=== PATIENT | female | born 1970 | race Caucasian/White ===

== ENCOUNTER 2016-08-14 14:38 | Inpatient (IN) | payer OTHER ==
[~2016-08-14] VITALS: Ht 167.6 cm; Wt 86.8 kg
[~2016-08-14 14:38] MED LIST: AMLO5TAB4 PO; ATEN-51 PO; CEPH500C PO; CIPR500T4 PO; FURO20TA3 PO; IBUP400T22 PO; LACT1CAP47 PO; LOSA25TA5 PO; MAGN400T28 PO; METF500T4 PO; MONT10TA21 PO; TRAM50TA2 PO
[2016-08-14] MEDS ORDERED: ASPIRIN 325 MG TAB PO STA (19:15)
[2016-08-14] MEDS ORDERED: LOSA50TA6 PO (19:37)
[2016-08-14] MEDS ORDERED: ASCO500S2 PO (19:39)
[2016-08-14] MEDS ORDERED: OMEG1CAP30 PO (19:39)
[2016-08-14 19:42] LABS: ADD SCAN DIFF NO
[2016-08-14 19:43] LABS: BASOPHIL # 0.1 10^3/ul (0.0-0.1); BASOPHILS % 0.6 % (0.0-2.0); EOSINOPHILS # 0.3 10^3/ul (0.0-0.5); EOSINOPHILS % 3.5 % (0.0-7.0); HEMATOCRIT 43.5 % (37.0-47.0); HEMOGLOBIN 14.4 g/dl (12.0-16.0); LYMPHOCYTES # 3.8 10^3/ul (0.8-2.9); LYMPHOCYTES % 44.6 % (15.0-51.0); MEAN CORPUSCULAR HEMOGLOBIN 30.4 pg (29.0-33.0); MEAN CORPUSCULAR HGB CONC 33.1 g/dl (32.0-37.0); MEAN PLATELET VOLUME 10.9 fl (7.4-10.4); MONOCYTE # 0.6 10^3/ul (0.3-0.9); MONOCYTES % 7.1 % (0.0-11.0); NEUTROPHIL # 3.7 10^3/ul (1.6-7.5); PLATELET COUNT 318 10^3/UL (140-415); RED BLOOD COUNT 4.73 10^6/ul (4.20-5.40); RED CELL DISTRIBUTION WIDTH 12.6 % (11.5-14.5); WHITE BLOOD COUNT 8.5 10^3/ul (4.8-10.8)
[2016-08-14] MEDS: NITROGLYCERIN (SL) 0.4 MG TAB SL PRN ×3 (19:46→20:08)
[2016-08-14 19:55] LABS: ALBUMIN 4.8 g/dl (3.3-4.9); CHLORIDE 104 mmol/L (97-110); INR 0.93; PROTIME 12.5 Sec (12.2-14.2)
[2016-08-14 19:56] LABS: PARTIAL THROMBOPLASTIN TIME 33.7 Sec (25.0-35.0); POTASSIUM 4.2 mmol/L (3.5-5.1); SODIUM 144 mmol/L (135-144)
[2016-08-14 19:58] LABS: ALBUMIN/GLOBULIN RATIO 1.11; ANION GAP 18 (8-16); ASPARTATE AMINO TRANSFERASE 53 IU/L (15-46); BILIRUBIN,INDIRECT 0.4 mg/dl (0-1.1); BILIRUBIN,TOTAL 0.4 mg/dl (0.2-1.3); CARBON DIOXIDE 26 mmol/L (21-31); CREATININE 0.61 mg/dl (0.44-1.00); TOTAL PROTEIN 9.1 g/dl (6.1-8.1)
[2016-08-14 19:59] LABS: ALANINE AMINOTRANSFERASE 54 IU/L (13-69); ALKALINE PHOSPHATASE 71 IU/L (42-121); BLOOD UREA NITROGEN 17 mg/dl (7-20); CALCIUM 9.4 mg/dl (8.4-10.2); CREATINE KINASE 75 IU/L (23-200); GLUCOSE 128 mg/dl (70-220)
--- NOTE | 2016-08-14 20:03 | ERA ---
ER Documentation Chief Complaint Date/Time DATE: 08/14/16 TIME: 19:57 Chief Complaint CP SINCE 11AM, RADIATING TO BACK, STARTED WHILE WALKING HPI This is a very pleasant 46-year-old female with a known history of paroxysmal atrial fibrillation, hypertension this apprentice Dr. Wei. The patient indicates that at 11 AM, 10 hours prior to arrival she had a sudden onset of severe chest pressure that lasted for 10-15 minutes. The pain was 8 out of 10 in intensity. She had recurrence of the pain at 2 PM with was 10 out of 10 intensity and therefore she immediately came to the emergency department to be further evaluated. She also stated that that episode of chest pain lasted for roughly 15 minutes. Contrary to the triage note the patient states that the pain did not radiate to the back with a pressure-like sensation on the left and right anterior chest wall. The patient indicates that she had a similar episode of pain July 27, 2015 when she had been admitted to [facility]. Due to her insurance she was transferred to [facility]. However the patient stated they performed an echocardiogram but she is not aware of the results. She underwent an angiogram performed by Dr. Wei in 2014. She had no shortness of breath at rest or exertion. She denies any swelling of her lower extremities. She indicates at this moment time her chest pain is 3 out of 10 in intensity. ROS All systems reviewed and are negative except as per history of present illness. Medications Home Meds Reported Medications Ascorbic Acid* (Ascorbic Acid*) 500 Mg/5 Ml Syrup, 500 MG PO DAILY, #150 ML 08/14/16 Loraine-3 Fatty Acids/Fish Oil (Loraine 3 Fish Oil Softgel) 1 Each Capsule., 1 EACH PO 08/14/16 Losartan Potassium* (Losartan Potassium*) 50 Mg Tablet, 50 MG PO DAILY, TAB 08/14/16 Magnesium Oxide* (Magnesium Oxide*) 400 Mg Tablet, 400 MG PO DAILY, TAB 01/24/16 Atenolol* (Atenolol*) 25 Mg Tablet, 25 MG PO QAM, TAB 02/21/15 Montelukast Sodium* (Singulair*) 10 Mg Tablet, 10 MG PO HS, TAB 02/03/14 Discontinued Reported Medications Metformin* (Glucophage*) 500 Mg Tab, 500 MG PO WITH BREAKFAST, #30 TAB 01/24/16 Losartan Potassium* (Losartan Potassium*) 25 Mg Tablet, 25 MG PO DAILY, TAB 01/24/16 Furosemide* (Furosemide*) 20 Mg Tablet, 20 MG PO DAILY, #60 TAB 01/24/16 Amlodipine Besylate* (Norvasc*) 5 Mg Tablet, 5 MG PO DAILY, TAB 02/21/15 Discontinued Scripts Ibuprofen* (Motrin*) 400 Mg Tab, 400 MG PO Q6H Y for PAIN AND OR ELEVATED TEMP, #30 TAB Prov:ALEISHA SANCHEZ NP 04/16/16 Ciprofloxacin Hcl* (Ciprofloxacin Hcl*) 500 Mg Tablet, 500 MG PO BID for 10 Days , TAB Prov:ALEISHA SANCHEZ NP 04/16/16 Tramadol HCl (Tramadol HCl) 50 Mg Tablet, 50 MG PO Q6 Y for SEVERE PAIN LEVEL 7- 10, #20 TAB Prov:ALEISHA SANCHEZ NP 04/16/16 Lactobacillus Acidophilus (Probiotic) 1 Each Capsule, 1 CAP PO DAILY for 10 Days , CAP Prov:KARISSA HUGHES MD 01/27/16 Cephalexin* (Cephalexin*) 500 Mg Capsule, 500 MG PO Q8, #30 CAP Prov:KARISSA HUGHES MD 01/27/16 Allergies Allergies: Coded Allergies: No Known Allergy (Unverified , 08/14/16) PMhx/Soc History of Surgery: No Anesthesia Reaction: No Hx Neurological Disorder: No Hx Respiratory Disorders: No Hx Cardiac Disorders: Yes (htn; heart disease) Hx Psychiatric Problems: No Hx Miscellaneous Medical Probl: No Hx Alcohol Use: No Hx Substance Use: No Hx Tobacco Use: No Physical Exam Vitals Vital Signs Date Time Temp Pulse Resp B/P Pulse Ox O2 Delivery O2 Flow Rate FiO2 08/14/16 19:30 98.1 92 14 155/88 100 Room Air 08/14/16 19:30 Nasal Cannula 2 08/14/16 14:45 97.9 60 18 132/83 100 Physical Exam Constitutional:Well-developed. Well-nourished. HEENT:Normocephalic. Atraumatic.Pupils were equal round reactive to light. Moist mucous membranes.No tonsillar exudates. Neck: No nuchal rigidity. No lymphadenopathy. No posterior cervical spine tenderness or step-offs. Respiratory: Not using accessory muscles of respiration.Lungs were clear to auscultation bilaterally. No rhonchi. No rales. No wheezing. Cardiovascular: Regular rate regular rhythm.No murmurs. No rubs were appreciated.S1, S2 normal. Distal pulses are palpable 2+ bilaterally. GI: Abdomen was soft. Nontender. Non Distended. No pulsatile abdominal masses or bruits. No rebound. No guarding. Bowel sounds were present and normal. Muscle skeletal: Full range of motion of both the upper and lower extremities bilaterally.Normal muscle tone.No assymetrical calf tenderness or swelling. Skin: No petechia, no purpura. No lesions on the palms or the soles of the feet. No maculopapular rash. NEURO: Patient was alert, awake, orientated x3.No facial droop. Gait observed and normal with no ataxia.Speech had regular rate and rhythm. No focal neurological deficits. Result Diagram: 08/14/16192908/14/161929 Results 24 hrs Laboratory Tests Test 08/14/16 19:30 White Blood Count 8.510^3/ul Red Blood Count 4.7310^6/ul Hemoglobin 14.4g/dl Hematocrit 43.5% Mean Corpuscular Volume 92.0fl Mean Corpuscular Hemoglobin 30.4pg Mean Corpuscular Hemoglobin Concent 33.1g/dl Red Cell Distribution Width 12.6% Platelet Count 41480^3/UL Mean Platelet Volume 10.9fl Neutrophils % 44.0% Lymphocytes % 44.6% Monocytes % 7.1% Eosinophils % 3.5% Basophils % 0.6% Nucleated Red Blood Cells % 0.0/100WBC Neutrophils # 3.710^3/ul Lymphocytes # 3.810^3/ul Monocytes # 0.610^3/ul Eosinophils # 0.310^3/ul Basophils # 0.110^3/ul Nucleated Red Blood Cells # 0.010^3/ul Prothrombin Time 12.5Sec Prothrombin Time Ratio 1.0 INR International Normalized Ratio 0.93 Activated Partial Thromboplast Time 33.7Sec Sodium Level 144mmol/L Potassium Level 4.2mmol/L Chloride Level 104mmol/L Carbon Dioxide Level 26mmol/L Anion Gap 18 Blood Urea Nitrogen 17mg/dl Creatinine 0.61mg/dl Glucose Level 128mg/dl Calcium Level 9.4mg/dl Total Bilirubin 0.4mg/dl Direct Bilirubin 0.00mg/dl Indirect Bilirubin 0.4mg/dl Aspartate Amino Transf (AST/SGOT) 53IU/L Alanine Aminotransferase (ALT/SGPT) 54IU/L Alkaline Phosphatase 71IU/L Creatine Kinase 75IU/L Creatine Kinase Index 0.7 Creatinine Kinase MB (Mass) 0.53ng/ml Troponin I < 0.012ng/ml B-Type Natriuretic Peptide 293PG/ML Total Protein 9.1g/dl Albumin 4.8g/dl Globulin 4.30g/dl Albumin/Globulin Ratio 1.11 Current Medications Medications (Trade) Dose Ordered Sig/Warren Route PRN Reason Start Time Stop Time Status Last Admin Dose Admin Aspirin (Aspirin) 325 mg ONCE STAT PO 08/14/16 19:15 08/14/16 19:16 DC 08/14/16 19:45 Nitroglycerin (Nitroglycerin (Sl Tab) 0.4 Mg) 1 tab Q5M UP TO 3 DOSES PRN SL CHEST PAIN 08/14/16 19:30 08/14/16 19:57 Procedures/MDM The patient presented to the emergency department with chest pain. My clinical evaluation and workup was to distinguish minor causes of chest pain from acute life threatening conditions such as myocardial infarction, pulmonary embolism, aortic dissection, esophageal rupture, cardiac tamponade. The patient was placed on a cardiac cath lab manager and continuous pulse oximetry. IV access established by nursing staff. Patient was given 325 mg of aspirin p.o. and 0.4 mg of sublingual nitroglycerin. Her chest pain improved to 2 out of 10 in intensity. Therefore she received further nitroglycerin. 1 view chest radiograph for and reviewed by myself showed no cardio megaly no infiltrates no pneumothorax or pleural effusions. 12 Lead EKG tracing ordered and reviewed by myself showed: Normal sinus rhythm of 89 bpm with premature complexes and no arrhythmia. KS interval was initially not appreciated in the reading as the machine read this is atrial fibrillation however I did see underlying P waves I did feel this is likely PVCs versus atrial fibrillation QRS duration normal. No ST segment elevation No ST segment depression. No changes consistent with acute ischemia. My clinical suspicion was low for aortic dissection. I will place a call to the patient's apprentice Dr. Wei and spoke with Dr. Mendoza who was taking call for Dr. Wei. The patient has been added to Dr. Wei consult list. The patient will be admitted in serious condition to hospitalist to undergo serial 12-lead EKG tracings and cardiac set of enzymes. I did not feel the patient was stable for transfer due to the changes in her EKG , significant cardiac history and therefore will be admitted to the hospital. Departure Diagnosis: Primary Impression: Chest pain Qualified Code: R07.9 - Chest pain, unspecified type Condition: Serious RODNEY GUTIERREZ Aug 14, 2016 20:03
[2016-08-14 20:07] LABS: CK-MB 0.53 ng/ml (0.0-2.4)
[2016-08-14 20:08] LABS: B-TYPE NATRIURETIC PEPTIDE 293 PG/ML (0-125)
[2016-08-14 20:15] LABS: TROPONIN-I < 0.012 ng/ml (0.00-0.12)
--- NOTE | 2016-08-14 20:28 | RADRPT ---
PROCEDURE: Chest x-ray CLINICAL INDICATION: Chest pain TECHNIQUE: Chest single view COMPARISON: 01/24/2016 FINDINGS: The heart is normal in size. The pulmonary vessels are normal in caliber. The lungs are clear. Th e costophrenic angles are sharp. The visualized bony thorax is unremarkable. IMPRESSION: No acute cardiopulmonary disease. RPTAT: HH .Lucius Chow MD, Date Time Electronically viewed and signed by .Lucius Chow MD, on 08/14/2016 20:28 .W/
[2016-08-14 22:48] VITALS: TEMP 98.1
[2016-08-14] MEDS: SOD CHLORIDE 0.9% 1,000 ML IV SCH (23:21)
[2016-08-14] MEDS ORDERED: DOCUSATE SODIUM 100 MG CAP PO PRN (23:30)
[2016-08-14] MEDS ORDERED: morphine 2 MG INJ IV PRN (23:30)
[2016-08-14] MEDS ORDERED: ACETAMINOPHEN 650 MG SUPP PR PRN (23:30)
[2016-08-14] MEDS ORDERED: NACL 0.9% 3 ML SYG IV SCH (23:30)
[2016-08-14] MEDS ORDERED: ACETAMINOPHEN 325 MG TAB PO PRN (23:30)
[2016-08-14] MEDS ORDERED: BISACODYL (EC) 5 MG TAB PO PRN (23:30)
[2016-08-14] MEDS ORDERED: MAGNESIUM HYDROXIDE 30ML CUP PO PRN (23:30)
[2016-08-15] VITALS (12 sets, daily range): BP systolic 119–171; BP diastolic 63–84; PULSE 54–95; RESP 18–20; Ht 167.6 cm; Wt 86.8 kg
[2016-08-15 03:07] LABS: CREATINE KINASE 84 IU/L (23-200)
[2016-08-15 03:16] LABS: CK-MB 0.38 ng/ml (0.0-2.4)
[2016-08-15 03:25] LABS: TROPONIN-I < 0.012 ng/ml (0.00-0.12)
[2016-08-15] MEDS: PANTOPRAZOLE (EC) 40 MG TAB PO SCH (05:27)
[2016-08-15 07:47] LABS: ADD SCAN DIFF NO
[2016-08-15 07:49] LABS: BASOPHIL # 0.1 10^3/ul (0.0-0.1); BASOPHILS % 0.7 % (0.0-2.0); EOSINOPHILS # 0.3 10^3/ul (0.0-0.5); EOSINOPHILS % 4.1 % (0.0-7.0); HEMATOCRIT 40.2 % (37.0-47.0); HEMOGLOBIN 13.1 g/dl (12.0-16.0); LYMPHOCYTES # 3.5 10^3/ul (0.8-2.9); LYMPHOCYTES % 47.9 % (15.0-51.0); MEAN CORPUSCULAR HEMOGLOBIN 30.3 pg (29.0-33.0); MEAN CORPUSCULAR HGB CONC 32.6 g/dl (32.0-37.0); MEAN CORPUSCULAR VOLUME 93.1 fl (82.0-101.0); MEAN PLATELET VOLUME 11.4 fl (7.4-10.4); MONOCYTE # 0.7 10^3/ul (0.3-0.9); MONOCYTES % 9.2 % (0.0-11.0); NEUTROPHIL # 2.8 10^3/ul (1.6-7.5); PLATELET COUNT 291 10^3/UL (140-415); RED BLOOD COUNT 4.32 10^6/ul (4.20-5.40); RED CELL DISTRIBUTION WIDTH 12.8 % (11.5-14.5); WHITE BLOOD COUNT 7.3 10^3/ul (4.8-10.8)
[2016-08-15 08:12] LABS: CREATINE KINASE 59 IU/L (23-200)
[2016-08-15 08:14] LABS: ALBUMIN 4.1 g/dl (3.3-4.9); ALBUMIN/GLOBULIN RATIO 1.2; BILIRUBIN,INDIRECT 0.2 mg/dl (0-1.1); BILIRUBIN,TOTAL 0.2 mg/dl (0.2-1.3); CALCIUM 9.1 mg/dl (8.4-10.2); CREATININE 0.61 mg/dl (0.44-1.00); POTASSIUM 4.6 mmol/L (3.5-5.1); TOTAL PROTEIN 7.5 g/dl (6.1-8.1)
[2016-08-15 08:22] LABS: CK-MB 0.32 ng/ml (0.0-2.4)
[2016-08-15 08:26] LABS: TROPONIN-I < 0.012 ng/ml (0.00-0.12)
[2016-08-15] MEDS: LOSARTAN 50 MG TAB PO SCH (09:28)
[2016-08-15] MEDS: ASPIRIN (EC) 325 MG TAB PO SCH (09:28)
[2016-08-15] MEDS: ASCORBIC ACID 500 MG TAB PO SCH (09:28)
[2016-08-15] MEDS: MAGNESIUM OXIDE 400 MG TAB PO SCH (09:28)
[2016-08-15] MEDS: ATENOLOL 25 MG TAB PO SCH (09:29)
[2016-08-15] MEDS: ENOXAPARIN 40 MG/0.4 ML SYG SC SCH (09:38)
--- NOTE | 2016-08-15 18:28 | CONS ---
DATE OF ADMISSION: 08/15/2016 DATE OF CONSULTATION: 08/15/2016 REASON FOR CONSULTATION: Chest pain, assess for acute coronary syndrome. REQUESTING PHYSICIAN: Deangelo Brandon MD. HISTORY OF PRESENT ILLNESS: Ms. Munoz is a 46-year-old female with a history of hypertension, paro xysmal atrial fibrillation and recurrent episodes of chest pain status post left heart catheterizati on in February 2015 revealing essentially normal coronary arteries with no significant blockages, ngoc silva now presents with complaints of substernal chest pain initiating in her stomach with a pressure-li ke feeling, radiating up to her chest with a tightness up to her jaw and head. The patient states s he has been evaluated [facility] recently and was discharged without further testing oth er than ED echo. Upon arrival, temperature was 97.9, blood pressure 132/83, pulse 60, respiration 1 8, saturating 100%. The patient's labs revealed white count of 8.5, hemoglobin 14.4, platelet count 318. Sodium 144, potassium 4.2, creatinine 0.6, BUN 17. Troponin negative. BNP is 293, LDL 55, H DL 42. INR 0.93. The patient underwent a chest x-ray revealing no acute cardiopulmonary abnormalit ies. The patient's electrocardiogram revealed sinus rhythm at a rate of 89 with frequent PVCs and p attern of trigeminy and nonspecific ST-T abnormalities. The patient was subsequently admitted to e floor and since admit to the floor, has had negative troponins x3. Patient has been continued on baseline atenolol and aspirin well as Losartan. The patient continues to have substernal chest pain . PAST MEDICAL HISTORY: As above in HPI with the patient having a prior history of PVCs that were in a pattern of bigeminy with a funny sensation when the patient was on increased beta angeline therapy, but not after undergoing a stress test, cardiac catheterization as above. MEDICATIONS CURRENTLY IN HOSPITAL: 1. Singular 10 mg at bedtime. 2. Vitamin C. 3. Atenolol 20 mg q.a.m. 4. Losartan 50 mg daily. 5. Magnesium oxide 40 mg daily. 6. Lovenox 40 mg subcutaneous daily. 7. Aspirin 325 mg daily. 8. Protonix 40 mg daily. 9. Tylenol p.r.n. 10. Morphine p.r.n. 11. Milk of magnesia p.r.n. 12. Dulcolax p.r.n. 13. IV fluid hydration 30 mL an hour 15. Sublingual nitroglycerin. ALLERGIES: NO KNOWN DRUG ALLERGIES. SOCIAL HISTORY: No tobacco, ETOH or illicit drug use. FAMILY HISTORY: Negative for sudden cardiac or early CAD. REVIEW OF SYSTEMS: As above in HPI. CONSTITUTIONAL: No fevers, chills. PULMONARY: Shortness of breath. CARDIOVASCULAR: Chest pain. GASTROINTESTINAL: No vomiting. GENITOURINARY: No hematuria. MUSCULOSKELETAL: No significant myalgias or arthralgias. ENDOCRINE: No documented history of diabetes mellitus. PHYSICAL EXAMINATION: VITAL SIGNS: Temperature 98.5, blood pressure 122/65, pulse 59, respirations 20, saturating 98%. GENERAL: The patient is alert, awake and complaining of intermittent substernal chest pain. NECK: JVP approximately 8 cm water. CHEST: Fair air movement throughout. HEART: Regular rate and rhythm. Normal S1, S2, I/ systolic murmur, nondisplaced PMI. ABDOMEN: Positive bowel sounds, soft. EXTREMITIES: No pitting edema, 1+ pulses bilaterally, posterior tibial. LABORATORY DATA: As above in HPI with most recently from today, white cells 7.3, hemoglobin 13.1, p latelet count 291. Sodium 141, potassium 4.6, creatinine 0.6, BUN 17, LDL 55, HDL 42. INR 0.9. IMAGING STUDIES: As above in HPI. No further imaging studies at this time. ECG: As above in HPI. No further electrocardiograms for my review at this time. IMPRESSION: 1. Chest pain, assess for acute coronary syndrome. 2. Premature ventricular contractions in a pattern of trigeminy. 3. Hypertension. 4. Bradycardia, likely secondary to medications. 5. Dyslipidemia with low HDL. RECOMMENDATIONS: 1. At this time, will maintain the patient on telemetry monitoring to follow rhythm and rate contro l closely. 2. I would trend the troponin to assure the patient's chest pain and trigeminy is not due to acute coronary syndrome or acute myocardial infarction. 3. Continue the patient on atenolol as tolerated. Would continue his aspirin for prevention of fur ther cardiovascular events and possible thromboembolic events in the setting of paroxysmal atrial fi brillation. 4. Continue the patient's Cozaar at this time for additional control of blood pressure. 5. Will reassess the patient's ejection fraction with a 2D echo and if the patient's final troponin does return negative, I believe the patient will benefit from further risk stratification as an inp atient with cardiac stress test, which will thus be scheduled to take place in the morning. Thank you for allowing me to take part in the care of this patient. I will continue to follow along very closely with you. Further recommendations will be made as the patient progresses through her inpatient hospital clinical course. Dictated By: DONNA WINTERS/CARMELITA Conf#: [id number] DID#: [id number]
--- NOTE | 2016-08-15 18:40 | QN ---
Documentation Comment [id number] ROGE SAAVEDRA MD Aug 15, 2016 18:40
--- NOTE | 2016-08-15 18:59 | HP ---
DATE OF ADMISSION: 08/15/2016 HISTORY OF PRESENT ILLNESS: The patient is a 46-year-old female who presented with chest pain and palpitations, has history of atrial fibrillation. Previously was discharged with a diagnosis of sepsis secondary to urinary tract infection, essential hypertension, type 2 diabetes mellitus, angina, lactic acidosis. The patient also previously has history of atypical chest pain , history of premature ventricular contractions and trigeminy. The patient has anxiety, hypertension, bradycardia, asymptomatic. ALLERGY HISTORY: NEGATIVE. FAMILY HISTORY: Noncontributory. SOCIAL HISTORY: Negative. MEDICATION HISTORY: The patient's home medications include: 1. Ascorbic acid. 2. Atenolol. 3. Losartan. 4. Magnesium oxide. 5. Singulair. REVIEW OF SYSTEMS: HEENT: Unremarkable. RESPIRATORY: No shortness of breath. CARDIOVASCULAR: A little chest pain noted. ABDOMEN: Unremarkable. EXTREMITIES: Unremarkable. PHYSICAL EXAMINATION: GENERAL: The patient is awake, alert. VITAL SIGNS: Stable. HEAD: Atraumatic, normocephalic. Pupils equal, reactive to light. NECK: Supple. No JVD. LUNGS: Clear. CARDIOVASCULAR: S1, S2 are normal. ABDOMEN: Soft, nontender. Bowel sounds present. No palpable mass or hepatosplenomegaly. EXTREMITIES: There is no cyanosis, clubbing, or edema. CENTRAL NERVOUS SYSTEM: The patient is awake, alert, no deficit. LABORATORY DATA: As mentioned above. IMPRESSION: 1. The patient has acute coronary syndrome. 2. Rule out myocardial infarction. 3. History of atrial fibrillation 4. History of premature ventricular contractions. PLAN: To continue home medication, will rule out ischemic heart disease with serial CPKs and enzymes, obtain cardiology consultation. Dr. Wei has been called. Other recommendations per Dr. Wei. Home medications will be reviewed and continued. Dictated By: ROGE SAAVEDRA MD BS/NTS Conf#: [id number] DID#: [id number] MTDD
[2016-08-15] MEDS ORDERED: MONTELUKAST 10 MG TAB PO SCH (21:00)
--- NOTE | 2016-08-15 21:32 | RADRPT ---
Echocardiogram Report Patient Name: KORIN SHAFFER Gender: Female Date: 1970 Study Date: 15-Aug-2016 Traffic Expert: [facility] Location: 6B Ref. Physician: ROGE SAAVEDRA Quality: Good Procedures: Transthoracic echocardiogram with complete 2D, M-Mode, and doppler examination. Indications: Coronary Artery Disease. 2D/M Mode Doppler Measurement Value Normal Ranges Measurement Value Normal Ranges LVIDd 2D 4.5 3.5 - 5.6 cm AV Peak [place] 1.5 m/sec LVIDs 2D 3.2 2.1 - 4.1 cm AV Peak PG 9.5 mmHg LVPWd 2D 1.3 0.6 - 1.1 cm LVOT Peak [place] 0.9 m/sec IVSd 2D 1.3 0.6 - 1.1 cm LVOT Peak PG 3.1 mmHg AoR Diam 2D 2.4 2.0 - 3.7 cm MV E Peak [place] 1.2 m/sec EDV 2D 90.9 cm3 MV A Peak [place] 0.7 m/sec ESV 2D 33.9 cm3 MV E/A 1.7 MV Decel Time 218 msec MV Decel Bet[place] 6 MV E/A 1.7 Findings Left Ventricle: Normal left ventricular systolic function. Normal left ventricular cavity size. Mild concentric left ventricular hypertrophy. Ejection fraction is visually estimated at 55 %. Tissue Doppler/Mitral Doppler indices are consistent with impaired relaxation (Stage I diastolic dysfunction). Right Ventricle: Normal right ventricular size. Normal right ventricular systolic function. Left Atrium: The left atrium is normal in size. Right Atrium: The right atrium is normal in size. Mitral Valve: Mild mitral leaflet calcification. Trace mitral regurgitation. Aortic Valve: Normal appearance of the aortic valve. Tricuspid Valve: Tricuspid valve not well visualized. There is trace tricuspid regurgitation. Pulmonic Valve: There is trace pulmonic regurgitation. Pericardium: Normal pericardium with no significant pericardial effusion. Aorta: Normal aortic root. IVC: Dilated IVC with respiratory collapse consistent with elevated right atrial pressure. Conclusions 1.Normal left ventricular systolic function. Normal left ventricular cavity size. Mild concentric left ventricular hypertrophy. Ejection fraction is visually estimated at 55 %. Tissue Doppler/Mitral Doppler indices are consistent with impaired relaxation (Stage I diastolic dysfunction). 2.Mild mitral leaflet calcification. Trace mitral regurgitation. 3.Tricuspid valve not well visualized. There is trace tricuspid regurgitation. 4.There is trace pulmonic regurgitation. Electronically Signed By: Kishan Wei 15-Aug-2016 21:31:52 -0700 Patient Name: KORIN SHAFFER Study Date: 15-Aug-2016 [id number]
[2016-08-15] MEDS: SOD CHLORIDE 0.9% 1,000 ML IV SCH (23:21)
[2016-08-16] VITALS (8 sets, daily range): BP systolic 120–143; BP diastolic 63–88; PULSE 56–93; RESP 20
[2016-08-16] MEDS: PANTOPRAZOLE (EC) 40 MG TAB PO SCH (05:24)
[2016-08-16] MEDS: ASPIRIN (EC) 325 MG TAB PO SCH (08:29)
[2016-08-16] MEDS: ASCORBIC ACID 500 MG TAB PO SCH (08:29)
[2016-08-16] MEDS: MAGNESIUM OXIDE 400 MG TAB PO SCH (08:31)
[2016-08-16] MEDS: LOSARTAN 50 MG TAB PO SCH (08:31)
[2016-08-16] MEDS: ATENOLOL 25 MG TAB PO SCH (08:31)
[2016-08-16] MEDS: ENOXAPARIN 40 MG/0.4 ML SYG SC SCH (08:33)
[2016-08-16] MEDS: SOD CHLORIDE 0.9% 1,000 ML IV SCH (08:34)
[2016-08-16 08:35] LABS: CHOL/HDL RATIO 3.4 RATIO
[2016-08-16] MEDS ORDERED: REGADENOSON 0.4 MG/5 ML SYG ONE (10:49)
--- NOTE | 2016-08-16 11:44 | CONS ---
Date/Time of Note Date/Time of Note DATE: 08/16/16 TIME: 11:41 Assessment/Plan Assessment/Plan Chief Complaint/Hosp Course IMPRESSION: 1. Chest pain, assess for acute coronary syndrome.-negative trop x 3 2. Premature ventricular contractions in a pattern of trigeminy.-intermittent recurrence 3. Hypertension. 4. Bradycardia, likely secondary to medications. 5. Dyslipidemia with low HDL. Recc: -Tele -Continue atenolol -Check TSH -Continue cozaar/asa/statin -lexiscan stress test today -start low dose oral nitrates Problems: Consultation Date/Type/Reason Admit Date/Time Aug 15, 2016 at 01:19 Initial Consult Date 08/15/2016 Type of Consultation: Cardiology Reason for Consultation Chest pain/arrythmia/PVC Referring Provider: ROGE SAAVEDRA Exam/Review of Systems Vital Signs Vitals Vital Signs Date Time Temp Pulse Resp B/P Pulse Ox O2 Delivery O2 Flow Rate FiO2 08/16/16 08:31 93 08/16/16 07:15 97.5 20 126/88 96 08/16/16 04:00 Room Air 08/14/16 19:30 2 Intake and Output 08/15/16 08/15/16 08/16/16 15:00 23:00 07:00 Intake Total 1200 ml 800 ml Balance 1200 ml 800 ml Exam Review of Systems: CONSTITUTIONAL: No fevers, chills. PULMONARY: No sob CARDIOVASCULAR: No chest pain/palpitations GASTROINTESTINAL: No nausea/vomiting. GENITOURINARY: No hematuria/dysuria. MUSCULOSKELETAL: No myagias/arthalgias. PSYCHIATRIC: The patient denies depression. NEUROLOGIC: No weakness Constitutional: alert, oriented Psych: no complaints Head: normocephalic ENMT: mucosa pink and moist Neck: jvd (8 cm water), supple Respiratory: clear to auscultation Cardiovascular: regular rate and rhythm Gastrointestinal: non-tender, soft Musculoskeletal: muscle tone (normal) Extremities: edema (none) Neurological: other (No focal deficits) Results Result Diagram: 08/15/16 0634 08/15/16 0646 Results 24 hrs Laboratory Tests Test 08/15/16 18:50 08/16/16 07:35 Magnesium Level 2.0 Troponin I < 0.012 Triglycerides Level 195 H Cholesterol Level 119 LDL Cholesterol, Calculated 45 HDL Cholesterol 35 Cholesterol/HDL Ratio 3.4 Medications Medications Current Medications Ascorbic Acid (Vitamin C) 500 mg DAILY PO Last administered on 08/16/16 08:29 ; Admin Dose 500 MG; Start 08/15/16 at 09:00 Atenolol (Tenormin) 25 mg QAM PO Last administered on 08/15/16 09:29; Admin Dose 25 MG; Start 08/15/16 at 09:00 Losartan Potassium (Cozaar) 50 mg DAILY PO Last administered on 08/15/16 09:28 ; Admin Dose 50 MG; Start 08/15/16 at 09:00 Magnesium Oxide (Mag-Ox 400) 400 mg DAILY PO Last administered on 08/16/16 08: 31; Admin Dose 400 MG; Start 08/15/16 at 09:00 Montelukast Sodium 10 mg 10 mg HS PO Last administered on 08/15/16 20:12; Admin Dose 10 MG; Start 08/15/16 at 21:00 Sodium Chloride (NS) 1,000 ml @ 30 mls/hr Q24H IV Last administered on 08:34; Admin Dose 30 MLS/HR; Start 08/14/16 at 23:21 Acetaminophen (Tylenol Tab) 650 mg Q6H PRN PO PAIN LEVEL 1-3 OR FEVER; Start at 23:30 Acetaminophen (Tylenol Supp) 650 mg Q6H PRN IA PAIN LEVEL 1-3 OR FEVER; Start 08/14/16 at 23:30 Morphine Sulfate (morphine) 2 mg Q4H PRN IV SEVERE PAIN LEVEL 7-10; Start 08/14 at 23:30 Docusate Sodium (Colace) 100 mg Q12H PRN PO CONSTIPATION; Start 08/14/16 at 23: 30 Magnesium Hydroxide (Milk Of Mag) 30 ml DAILY PRN PO CONSTIPATION; Start at 23:30 Bisacodyl (Dulcolax) 5 mg DAILY PRN PO CONSTIPATION; Start 08/14/16 at 23:30 Pantoprazole (Protonix Tab) 40 mg DAILY@06 PO Last administered on 08/16/16 05 :24; Admin Dose 40 MG; Start 08/15/16 at 06:00 Enoxaparin Sodium (Lovenox) 40 mg DAILY SC Last administered on 08/16/16 08:33 ; Admin Dose 40 MG; Start 08/15/16 at 09:00 Aspirin (Ecotrin) 325 mg DAILY PO Last administered on 08/16/16t 08:29; Admin Dose 325 MG; Start 08/15/16 at 09:00 DONNA LANDRUM Aug 16, 2016 11:44
[2016-08-16] MEDS ORDERED: METOPROLOL 5 MG INJ IV PRN (12:00)
--- NOTE | 2016-08-16 12:03 | CARRPT ---
DATE OF PROCEDURE: 08/16/2016 LEXISCAN CARDIOLITE STRESS TEST, ELECTROCARDIOGRAM PORTION REASON FOR STRESS TESTING: PVCs in a pattern of trigeminy and bigeminy, chest pain BASELINE VITAL SIGNS AND ELECTROCARDIOGRAM: Pulse 93, blood pressure 176/104. Electrocardiogram reveals sinus rhythm, rate of 93, with PVCs in a pattern of trigeminy and lateral T-wave inversion. PROCEDURE: The patient underwent standard Lexiscan infusion protocol over 10 seconds, followed by radiolabeled tracer. The patient's test was stopped due to completion of protocol. Maximal achieved blood pressure during the test was 170/94. Maximum heart during the test was 100. ELECTROCARDIOGRAM FINDINGS: The patient did not develop any new Lexiscan- induced ST or T-wave changes from baseline abnormalities. Very frequent PVCs throughout stress testing and before stress testing. SYMPTOMS: The patient had slight complaints of shortness of breath. No chest pain during stress testing. IMPRESSION: 1. No Lexiscan-induced ST or T-wave changes from baseline abnormalities for diagnostic cardiac ischemia. 2. Complaints of shortness of breath during stress testing. 3. Frequent PVCs before and throughout stress testing. 4. Report of nuclear images to follow in a separate dictation. Dictated By: DONNA WINTERS/CARMELITA Conf#: [id number] DID#: [id number] CC: ROGE SAAVEDRA MD;*EndCC* MTDD
--- NOTE | 2016-08-16 12:40 | RADRPT ---
PROCEDURE: Lexiscan myocardial perfusion study CLINICAL INDICATION: 46 -year-old patient complaining of chest pain. TECHNIQUE: Lexiscan 0.4 mg intravenously separate acquisition gated myocardial perfusion SPECT usi ng Tc 99m Myoview 28.6 mCi intravenously at stress and Tc-99m Myoview, 9.5 mCi intravenously at rest was performed using the rest/stress sequence. Poststress Myoview SPECT images were obtained in the supine position. COMPARISON: No prior studies. FINDINGS: Perfusion images reveal no evidence of perfusion defects. Lexiscan post stress gated SPECT images demonstrate no wall motion abnormalities. IMPRESSION: 1. No evidence of perfusion defects. 2. No wall motion abnormalities. 3. The left ventricle ejection fraction at stress is 62%. A call report was made to Dr. Wei at 12:39 p.m. on August 16, 2016. RPTAT: HH .Ritika Wolff MD, Date Time Electronically viewed and signed by .Ritika Wolff MD, on 08/16/2016 12:40 .L/
[2016-08-16] MEDS ORDERED: ISOSORBIDE DINITRATE 10 MG TAB PO SCH (13:00)
[2016-08-16] MEDS ORDERED: MAGNESIUM SULFATE 1 GM/D5W 100 ML IVPB ONE (13:00)
--- NOTE | 2016-08-16 16:43 | PDOCDIS ---
Discharge Instructions CONDITION Patient Condition: Stable HOME CARE INSTRUCTIONS: Special Diet: Cardiac ACTIVITY: Activity Restrictions: Slowly Increase Activity FOLLOW UP/APPOINTMENTS Appointments f/u own pcp [address] schuster 1 wk ROGE SAAVEDRA MD Aug 16, 2016 16:43
--- NOTE | 2016-08-16 17:26 | RADRPT ---
Vent Rate: 89 bpm RR Interval: 0 msec OH Interval: 0 msec QRS Duration: 96 msec QT Interval: 380 msec QTC Interval: 462 msec P-R-T Yaphank: 40 - 56 - 68 degrees SR with frequent PVC's Non-specific ST-T wave abnormalities Electronically Signed By: Dominick Melgar [id number]
--- NOTE | 2016-08-16 18:34 | PN ---
Date/Time of Note Date/Time of Note DATE: 08/16/16 TIME: 18:34 Assessment/Plan VTE Prophylaxis VTE Prophylaxis Intervention: other Lines/Catheters IV Catheter Type (from [facility]): Peripheral IV Urinary Cath still in place: No Assessment/Plan Chief Complaint/Hosp Course IMPRESSION: 1. The patient has acute coronary syndrome. 2. Rule out myocardial infarction. 3. History of atrial fibrillation 4. History of premature ventricular contractions. plan home gayle neg Problems: Subjective 24 Hr Interval Summary Subjective hx not possible: other (no sob) Exam/Review of Systems Vital Signs Vitals Vital Signs Date Time Temp Pulse Resp B/P Pulse Ox O2 Delivery O2 Flow Rate FiO2 08/16/16 16:20 74 08/16/16 15:10 97.4 20 120/63 99 08/16/16 04:00 Room Air 08/14/16 19:30 2 Intake and Output 08/15/16 08/15/16 08/16/16 15:00 23:00 07:00 Intake Total 1200 ml 800 ml Balance 1200 ml 800 ml Exam Respiratory: clear to auscultation Cardiovascular: regular rate and rhythm Gastrointestinal: soft Musculoskeletal: nl extremities to inspection Results Result Diagram: 08/15/16 0634 08/15/16 0646 Results 24 hrs Laboratory Tests Test 08/15/16 18:50 08/16/16 07:35 Magnesium Level 2.0 Troponin I < 0.012 Triglycerides Level 195 H Cholesterol Level 119 LDL Cholesterol, Calculated 45 HDL Cholesterol 35 Cholesterol/HDL Ratio 3.4 Thyroid Stimulating Hormone (TSH) 1.690 Medications Medications Current Medications Ascorbic Acid (Vitamin C) 500 mg DAILY PO Last administered on 08/16/16 08:29 ; Admin Dose 500 MG; Start 08/15/16 at 09:00 Atenolol (Tenormin) 25 mg QAM PO Last administered on 08/15/16 09:29; Admin Dose 25 MG; Start 08/15/16 at 09:00 Losartan Potassium (Cozaar) 50 mg DAILY PO Last administered on 08/15/16 09:28 ; Admin Dose 50 MG; Start 08/15/16 at 09:00 Magnesium Oxide (Mag-Ox 400) 400 mg DAILY PO Last administered on 08/16/16 08: 31; Admin Dose 400 MG; Start 08/15/16 at 09:00 Montelukast Sodium 10 mg 10 mg HS PO Last administered on 08/15/16 20:12; Admin Dose 10 MG; Start 08/15/16 at 21:00 Sodium Chloride (NS) 1,000 ml @ 30 mls/hr Q24H IV Last administered on 08:34; Admin Dose 30 MLS/HR; Start 08/14/16 at 23:21 Acetaminophen (Tylenol Tab) 650 mg Q6H PRN PO PAIN LEVEL 1-3 OR FEVER; Start at 23:30 Acetaminophen (Tylenol Supp) 650 mg Q6H PRN ND PAIN LEVEL 1-3 OR FEVER; Start 08/14/16 at 23:30 Morphine Sulfate (morphine) 2 mg Q4H PRN IV SEVERE PAIN LEVEL 7-10; Start 08/14 at 23:30 Docusate Sodium (Colace) 100 mg Q12H PRN PO CONSTIPATION; Start 08/14/16 at 23: 30 Magnesium Hydroxide (Milk Of Mag) 30 ml DAILY PRN PO CONSTIPATION; Start at 23:30 Bisacodyl (Dulcolax) 5 mg DAILY PRN PO CONSTIPATION; Start 08/14/16 at 23:30 Pantoprazole (Protonix Tab) 40 mg DAILY@06 PO Last administered on 08/16/16 05 :24; Admin Dose 40 MG; Start 08/15/16 at 06:00 Enoxaparin Sodium (Lovenox) 40 mg DAILY SC Last administered on 08/16/16 08:33 ; Admin Dose 40 MG; Start 08/15/16 at 09:00 Aspirin (Ecotrin) 325 mg DAILY PO Last administered on 08/16/16 08:29; Admin Dose 325 MG; Start 08/15/16 at 09:00 Metoprolol Tartrate (Lopressor) 2.5 mg Q4H PRN IV PVC's or HR>110 Hold SBP<100 ; Start 08/16/16 at 12:00 Isosorbide Dinitrate (Isordil) 10 mg TID PO Last administered on 08/16/16 14: 02; Admin Dose 10 MG; Start 08/16/16 at 13:00 ROGE SAAVEDRA MD Aug 16, 2016 18:34
== END 2016-08-16 19:11 | disposition home or self-care (01) | DRG 313 ==
LOC: E/R 14:38 → TEL 08-15 01:19
PROVIDERS: ADMIT Internal Medicine Nephrology; ATTEND Internal Medicine Nephrology
DX: R07.9 Chest pain, unspecified (principal); I10 Essential (primary) hypertension; I49.3 Ventricular premature depolarization; R00.1 Bradycardia, unspecified; E78.5 Hyperlipidemia, unspecified; I48.91 Unspecified atrial fibrillation
CPT/HCPCS: 36415; 71010; 78452; 80053; 80061; 82550; 82553; 83735; 83880; 84443; 84484; 85025; 85610; 85730; 93005; 93017; 93306; A9500; A9505; J1650; J2785; J3475; J7030

== ENCOUNTER 2017-08-05 17:43 | Emergency (ER) | END 2017-08-05 20:25 | disposition home or self-care (01) ==

== ENCOUNTER 2018-03-19 08:13 | Emergency (ER) | END 2018-03-19 10:49 | disposition home or self-care (01) ==